=== PATIENT | male | born 1995 | race African-American/Black ===

== ENCOUNTER 2017-12-09 01:41 | Emergency (ER) | payer BC ==
[~2017-12-09] VITALS: Ht 175.3 cm; Wt 75.0 kg
[~2017-12-09 01:41] MED LIST: NORCO 325 MG-51 TAB PO
[2017-12-09 01:47] VITALS: TEMP 98.1
[2017-12-09] MEDS ORDERED: PEPCID 20MG TAB20 MG PO (04:42)
[2017-12-09] MEDS ORDERED: BENADRYL25 M2 PO (04:42)
[2017-12-09] MEDS ORDERED: PREDNISONE20 MG PO (04:42)
[2017-12-09] MEDS ORDERED: EPIPEN 2-PAK1 MG/ML IM (04:42)
[2017-12-09 05:10] VITALS: BP 111/82; PULSE 71
== END 2017-12-09 05:09 | disposition home or self-care (01) ==
LOC: COL.ER 01:41
DX: J39.2 Other diseases of pharynx (principal); F17.210 Nicotine dependence, cigarettes, uncomplicated; Z91.018 Allergy to other foods
CPT/HCPCS: J8540

== ENCOUNTER 2019-12-16 18:53 | Emergency (ER) | payer SELFPAY ==
[~2019-12-16] VITALS: Ht 175.3 cm; Wt 84.1 kg
[~2019-12-16 18:53] MED LIST changes: +BENADRYL25 M2 PO; +EPIPEN 2-PAK1 MG/ML IM; +PEPCID 20MG TAB20 MG PO; +PREDNISONE20 MG PO
[2019-12-16 18:55] VITALS: TEMP 98.2
[2019-12-16 20:43] VITALS: BP 126/75; PULSE 106
== END 2019-12-16 20:52 | disposition home or self-care (01) ==
LOC: COL.ER 18:53
DX: F41.0 Panic disorder [episodic paroxysmal anxiety] (principal); E11.65 Type 2 diabetes mellitus with hyperglycemia; R06.4 Hyperventilation
CPT/HCPCS: J2060; J7030